=== PATIENT | female | born 1955 | race Caucasian/White ===

== ENCOUNTER 2017-09-09 05:39 | Inpatient (IN) ==
[2017-09-08 15:45] LABS: Basophils # 0.1 10*3/uL (0.0-0.2); Basophils % 0.8 % (0.0-0.8); Eosinophils # 0.3 10*3/uL (0.0-0.87); Eosinophils % 4.9 % (0.00-10.9); Hematocrit 42.8 VOL% (35.7-47.0); Hemoglobin 15.1 GM/DL (12.0-16.0); Immature Granulocytes % 0.6 %; Immature Granulocytes Absolute 0.04 #; Lymphocytes # 1.8 10*3/uL (1.4-4.0); Lymphocytes % 27.8 % (21.3-54.2); Mean Corpuscular HGB Conc 35.3 GM/DL (32-36); Mean Corpuscular Hemoglobin 30 PG (27-34); Mean Corpuscular Volume 84.1 FL (87-102); Mean Platelet Volume 9.7 FL (9.6-12.0); Monocytes # 0.6 10*3/uL (0.11-0.8); Monocytes % 9.4 % (1.7-12.7); Neutrophils # 3.7 10*3/uL (1.4-7.4); Neutrophils % 56.5 % (38.7-73.9); Platelet Count 296 T/CUMM (130-400); Red Blood Count 5.09 MC/CUMM (3.8-5.5); Red Cell Distribution Width 13.2 % (9.3-17.3); White Blood Count 6.5 T/CUMM (4-12)
[2017-09-08 16:08] LABS: Albumin 4.1 G/DL (3.4-5.0); Bilirubin,Total 0.5 MG/DL (0.2-1.0); Calcium 9.2 MG/DL (8.5-10.1); Osmolality,Calculated 280.5 MOS/KG (273-304); Potassium 3.9 MMOL/L (3.5-5.1); Total Protein 7.2 G/DL (6.4-8.3)
[2017-09-09] MEDS ORDERED: DIAZEPAM 5 MG TABLET PO ONE (07:47)
[2017-09-09] MEDS ORDERED: FAMOTIDINE 20 MG TABLET PO ONE (07:47)
[2017-09-09] MEDS ORDERED: SCOPOLAMINE 1.5 MG PATCH TRANSDERM STA (07:48)
[2017-09-09] MEDS ORDERED: LACTATED RINGERS 1,000 ML IV SCH (08:30)
[2017-09-09] MEDS ORDERED: LIDOCAINE 1%/EPI INJ 20 ML VIAL ONE (08:32)
[2017-09-09] MEDS ORDERED: ceFAZolin 1,000 MG VIAL ONE (09:00)
[2017-09-09] MEDS ORDERED: PHENYLEPHRINE 1 MG/10 ML SYRINGE IV ONE (09:29)
[2017-09-09] MEDS ORDERED: ROCURONIUM 100 MG/10 ML VIAL IV ONE (09:29)
[2017-09-09] MEDS ORDERED: LIDOCAINE 2% 5 ML VIAL ONE (09:29)
[2017-09-09] MEDS ORDERED: SUCCINYLCHOLINE 200 MG/10 ML VIAL ONE (09:29)
[2017-09-09] MEDS ORDERED: GLYCOPYRROLATE 0.4 MG/2 ML VIAL ONE (09:29)
[2017-09-09] MEDS ORDERED: PROPOFOL 200 MG/20 ML VIAL IV ONE (09:29)
[2017-09-09] MEDS ORDERED: ONDANSETRON 4 MG/2 ML VIAL ONE ×2 (09:29→15:05)
[2017-09-09] MEDS ORDERED: DEXAMETHASONE 10 MG/1 ML VIAL ONE (09:29)
[2017-09-09] MEDS ORDERED: ALBUMIN 5% 12.5 GM/250 ML VIAL IV ONE ×2 (10:10→14:05)
[2017-09-09] MEDS ORDERED: PROMETHAZINE 25 MG/1 ML VIAL IM PRN (13:37)
[2017-09-09] MEDS ORDERED: ALBUMIN 25% 25 GM/100 ML VIAL IV ONE (14:02)
[2017-09-09] MEDS ORDERED: fentaNYL 100 MCG/2 ML VIAL ONE (14:02)
[2017-09-09] MEDS ORDERED: LACTATED RINGERS 3,000 ML IV ONE (14:03)
[2017-09-09] MEDS ORDERED: KETAMINE 500 MG/10 ML VIAL ONE (14:03)
[2017-09-09] MEDS ORDERED: ACETAMINOPHEN 1,000 MG/100 ML VIAL IV ONE (14:03)
[2017-09-09] MEDS ORDERED: SEVOFLURANE 1 UNIT/15 MINUTE INH ONE (14:04)
[2017-09-09] MEDS ORDERED: HYDROmorphone PCA 30 MG/30 ML SYRINGE IV ONE (14:08)
[2017-09-09] MEDS: HYDROmorphone PCA 30 MG/30 ML SYRINGE IV SCH (14:09)
[2017-09-09 14:12] LABS: Apearance,Urine CLEAR (Clear); Bilirubin,Urine Negative (Negative); Blood, Urine Negative (Negative); Glucose,Urine (UA) Negative (Negative); Ketones,Urine Negative (Negative); Nitrite,Urine Negative (Negative); Protein,Urine Negative; RBC,Urine <1 /HPF (0-4); Urine Color Yellow (Yellow); Urine Specific Gravity 1.014 (1.001-1.035); Urine Urobilinogen < 2.0 EU/DL (0.2-1.0); WBC,Urine <1 /HPF (0-6)
[2017-09-09] MEDS ORDERED: HYDROmorphone 2 MG/1 ML VIAL ONE (15:05)
[2017-09-09] MEDS ORDERED: ONDANSETRON 4 MG/2 ML VIAL IV PRN (15:05)
[2017-09-09] MEDS: HYDROmorphone 2 MG/1 ML VIAL IV PRN ×2 (15:06→15:20)
[2017-09-09] MEDS: KETOROLAC 15 MG/1 ML VIAL IV SCH ×2 (17:55→21:18)
[2017-09-09] MEDS: DEXTROSE 5% NACL 0.45% 1,000 ML IV SCH (18:00)
[2017-09-09 21:59] LABS: Hematocrit 34.9 VOL% (35.7-47.0)
[2017-09-09 22:07] LABS: Hemoglobin 12.1 GM/DL (12.0-16.0)
[2017-09-10] MEDS: DEXTROSE 5% NACL 0.45% 1,000 ML IV SCH ×5 (00:08→20:45)
[2017-09-10] MEDS: KETOROLAC 15 MG/1 ML VIAL IV SCH ×4 (01:33→19:09)
[2017-09-10 05:59] LABS: Basophils % 0.1 % (0.0-0.8); Hematocrit 32.9 VOL% (35.7-47.0); Hemoglobin 11.1 GM/DL (12.0-16.0); Immature Granulocytes % 0.6 %; Immature Granulocytes Absolute 0.06 #; Lymphocytes % 9.8 % (21.3-54.2); Mean Corpuscular HGB Conc 33.7 GM/DL (32-36); Mean Corpuscular Hemoglobin 30 PG (27-34); Mean Corpuscular Volume 87.5 FL (87-102); Mean Platelet Volume 9.8 FL (9.6-12.0); Monocytes # 0.8 10*3/uL (0.11-0.8); Monocytes % 7.6 % (1.7-12.7); Neutrophils # 8.2 10*3/uL (1.4-7.4); Neutrophils % 81.9 % (38.7-73.9); Platelet Count 213 T/CUMM (130-400); Red Blood Count 3.76 MC/CUMM (3.8-5.5)
[2017-09-10 06:24] LABS: Calcium 8.6 MG/DL (8.5-10.1); Osmolality,Calculated 284.1 MOS/KG (273-304); Potassium 4.4 MMOL/L (3.5-5.1)
[2017-09-10] MEDS ORDERED: ePHEDrine 50 MG/ML AMP ONE (06:49)
[2017-09-10] MEDS: PANTOPRAZOLE 40 MG VIAL IV SCH (08:01)
[2017-09-10] MEDS: ENOXAPARIN 40 MG/0.4 ML SYRINGE SUBCUT SCH (08:01)
[2017-09-10] MEDS: METOCLOPRAMIDE 10 MG/2 ML VIAL IV SCH ×2 (14:39→19:09)
[2017-09-10] MEDS: HYDROmorphone PCA 30 MG/30 ML SYRINGE IV SCH (14:43)
[2017-09-10] MEDS: ACETAMINOPHEN 325 MG TABLET PO PRN (19:08)
[2017-09-11] MEDS: METOCLOPRAMIDE 10 MG/2 ML VIAL IV SCH ×5 (01:19→23:28)
[2017-09-11] MEDS: KETOROLAC 15 MG/1 ML VIAL IV SCH ×5 (01:25→23:28)
[2017-09-11] MEDS: DEXTROSE 5% NACL 0.45% 1,000 ML IV SCH ×4 (05:17→21:43)
[2017-09-11] MEDS: ENOXAPARIN 40 MG/0.4 ML SYRINGE SUBCUT SCH (07:49)
[2017-09-11] MEDS: PANTOPRAZOLE 40 MG VIAL IV SCH ×2 (07:49→11:21)
[2017-09-11] MEDS: ACETAMINOPHEN 325 MG TABLET PO PRN (07:50)
[2017-09-11] MEDS: HYDROmorphone PCA 30 MG/30 ML SYRINGE IV SCH (17:41)
[2017-09-12] MEDS: METOCLOPRAMIDE 10 MG/2 ML VIAL IV SCH ×3 (05:41→18:26)
[2017-09-12] MEDS: KETOROLAC 15 MG/1 ML VIAL IV SCH ×2 (05:41→12:43)
[2017-09-12] MEDS: DEXTROSE 5% NACL 0.45% 1,000 ML IV SCH ×4 (05:41→17:16)
[2017-09-12] MEDS: PANTOPRAZOLE 40 MG VIAL IV SCH (08:36)
[2017-09-12] MEDS: ENOXAPARIN 40 MG/0.4 ML SYRINGE SUBCUT SCH (08:36)
[2017-09-12] MEDS: HYDROmorphone PCA 30 MG/30 ML SYRINGE IV SCH (17:16)
[2017-09-13] MEDS: METOCLOPRAMIDE 10 MG/2 ML VIAL IV SCH ×5 (00:31→23:34)
[2017-09-13] MEDS: DEXTROSE 5% NACL 0.45% 1,000 ML IV SCH ×2 (06:57→17:23)
[2017-09-13] MEDS: ENOXAPARIN 40 MG/0.4 ML SYRINGE SUBCUT SCH (10:02)
[2017-09-13] MEDS: PANTOPRAZOLE 40 MG VIAL IV SCH (10:02)
[2017-09-13] MEDS: HYDROmorphone PCA 30 MG/30 ML SYRINGE IV SCH (15:38)
[2017-09-14] MEDS: DEXTROSE 5% NACL 0.45% 1,000 ML IV SCH ×3 (01:40→15:28)
[2017-09-14] MEDS: METOCLOPRAMIDE 10 MG/2 ML VIAL IV SCH ×4 (05:22→23:13)
[2017-09-14 06:41] LABS: Basophils % 0.6 % (0.0-0.8); Eosinophils # 0.6 10*3/uL (0.0-0.87); Eosinophils % 8.7 % (0.00-10.9); Hematocrit 32.3 VOL% (35.7-47.0); Hemoglobin 11.3 GM/DL (12.0-16.0); Immature Granulocytes % 1.1 %; Immature Granulocytes Absolute 0.07 #; Lymphocytes % 30.7 % (21.3-54.2); Mean Corpuscular Hemoglobin 30 PG (27-34); Mean Corpuscular Volume 85.2 FL (87-102); Mean Platelet Volume 10.6 FL (9.6-12.0); Monocytes # 0.5 10*3/uL (0.11-0.8); Neutrophils # 3.2 10*3/uL (1.4-7.4); Neutrophils % 50.9 % (38.7-73.9); Platelet Count 240 T/CUMM (130-400); Red Blood Count 3.79 MC/CUMM (3.8-5.5); Red Cell Distribution Width 13.1 % (9.3-17.3); White Blood Count 6.4 T/CUMM (4-12)
[2017-09-14 07:10] LABS: Osmolality,Calculated 283.1 MOS/KG (273-304); Potassium 3.4 MMOL/L (3.5-5.1)
[2017-09-14] MEDS ORDERED: BISACODYL 10 MG SUPP RECTAL PRN (09:48)
[2017-09-14] MEDS: ENOXAPARIN 40 MG/0.4 ML SYRINGE SUBCUT SCH (10:17)
[2017-09-14] MEDS: PANTOPRAZOLE 40 MG VIAL IV SCH (10:19)
[2017-09-14] MEDS: traMADol 50 MG TABLET PO PRN (15:19)
[2017-09-14] MEDS: ONDANSETRON 4 MG/2 ML VIAL IV PRN ×2 (15:21→21:59)
[2017-09-14] MEDS: HYDROmorphone 2 MG/1 ML VIAL IM PRN ×2 (17:57→21:48)
[2017-09-15] MEDS: ONDANSETRON 4 MG/2 ML VIAL IV PRN ×2 (02:30→07:36)
[2017-09-15] MEDS: HYDROmorphone 2 MG/1 ML VIAL IM PRN ×3 (02:33→23:56)
[2017-09-15] MEDS: DEXTROSE 5% NACL 0.45% 1,000 ML IV SCH ×3 (02:34→19:46)
[2017-09-15] MEDS: METOCLOPRAMIDE 10 MG/2 ML VIAL IV SCH ×4 (05:31→23:51)
[2017-09-15] MEDS: ACETAMINOPHEN 325 MG TABLET PO PRN (07:55)
[2017-09-15] MEDS: PANTOPRAZOLE 40 MG VIAL IV SCH (09:37)
[2017-09-15] MEDS: ENOXAPARIN 40 MG/0.4 ML SYRINGE SUBCUT SCH (10:31)
[2017-09-16] MEDS: DEXTROSE 5% NACL 0.45% 1,000 ML IV SCH ×2 (03:29→18:48)
[2017-09-16] MEDS: METOCLOPRAMIDE 10 MG/2 ML VIAL IV SCH ×4 (06:20→23:36)
[2017-09-16] MEDS: HYDROmorphone 2 MG/1 ML VIAL IM PRN (06:24)
[2017-09-16] MEDS: PANTOPRAZOLE 40 MG VIAL IV SCH (09:16)
[2017-09-16] MEDS: ENOXAPARIN 40 MG/0.4 ML SYRINGE SUBCUT SCH (09:16)
[2017-09-16] MEDS ORDERED: HYDROmorphone 2 MG/1 ML VIAL IV PRN (09:35)
[2017-09-16] MEDS: ONDANSETRON 4 MG/2 ML VIAL IV PRN ×2 (10:30→18:05)
[2017-09-16] MEDS: ACETAMINOPHEN 325 MG TABLET PO PRN (10:30)
[2017-09-17 05:05] LABS: Basophils % 0.3 % (0.0-0.8); Eosinophils # 0.5 10*3/uL (0.0-0.87); Eosinophils % 5.3 % (0.00-10.9); Hematocrit 32.7 VOL% (35.7-47.0); Hemoglobin 11.3 GM/DL (12.0-16.0); Immature Granulocytes % 0.8 %; Immature Granulocytes Absolute 0.07 #; Lymphocytes # 2.1 10*3/uL (1.4-4.0); Lymphocytes % 23.3 % (21.3-54.2); Mean Corpuscular HGB Conc 34.6 GM/DL (32-36); Mean Corpuscular Hemoglobin 30 PG (27-34); Mean Corpuscular Volume 86.3 FL (87-102); Mean Platelet Volume 10.1 FL (9.6-12.0); Monocytes # 0.6 10*3/uL (0.11-0.8); Monocytes % 6.8 % (1.7-12.7); Neutrophils # 5.7 10*3/uL (1.4-7.4); Neutrophils % 63.5 % (38.7-73.9); Platelet Count 249 T/CUMM (130-400); Red Blood Count 3.79 MC/CUMM (3.8-5.5); Red Cell Distribution Width 13.4 % (9.3-17.3)
[2017-09-17 05:21] LABS: Calcium 9.1 MG/DL (8.5-10.1); Osmolality,Calculated 284.8 MOS/KG (273-304); Potassium 4.7 MMOL/L (3.5-5.1)
[2017-09-17] MEDS: METOCLOPRAMIDE 10 MG/2 ML VIAL IV SCH ×2 (05:50→13:18)
[2017-09-17] MEDS: PANTOPRAZOLE 40 MG VIAL IV SCH (08:51)
[2017-09-17] MEDS: ENOXAPARIN 40 MG/0.4 ML SYRINGE SUBCUT SCH (08:53)
[2017-09-17] MEDS: traMADol 50 MG TABLET PO PRN (09:00)
[2017-09-17 11:21] VITALS: BP 123/82
[2017-09-17] MEDS: DEXTROSE 5% NACL 0.45% 1,000 ML IV SCH (13:24)
== END 2017-09-17 15:00 | disposition home or self-care (01) | DRG 336 ==
LOC: N.OR 05:39 → N.SDSINP 05:40 → N.3E 15:58
PROVIDERS: ADMIT Specialist; ATTEND Specialist